=== PATIENT | male | born 1975 | race Caucasian/White ===

== ENCOUNTER 2017-01-07 19:11 | Emergency (ER) | payer MEDICARE ==
[~2017-01-07] VITALS: Ht 182.9 cm; Wt 86.2 kg
--- NOTE | ~2017-01-07 | CR230 ---
[facility] A Service [facility] RADIOLOGY TEXT RESULTS PATIENT: KATHY COOPER LOCATION: SED : 79 UNIT #: [id number] AGE: [address]: Cam Mac PAC SEX: M ORDER DR: [id number] [place] [id number] E MR#: [id number] Acc #: [id number] NAME: KATHY COOPER. : 1975 SEX: M STUDY DATE/TIME: 01/07/2017 20:51 UNIT: SED ROOM: STUDY DESCRIPTION: CR Shoulder Min 2 View Rt Attending Physician: Cam Mac P.A.-C. Ordering Physician: Cma Mac P.A.-C. Primary Care Physician: Primary Care Physician No MEDICAL IMAGING REPORT This report is preliminary unless electronic signature is present. EXAM Right shoulder series dated 01/07/2017. COMPARISON Single view of the chest dated 10/11/2008. HISTORY Right shoulder pain from 0300 hours today. Patient tripped while going down stairs. FINDINGS Three views of the right shoulder were obtained. AP view with internal and external rotation of the shoulder girdle shows satisfactory relationship of the humeral head and glenoid fossa. The joint space is normal. There is no identifiable fracture or dislocation or bony destructive process about the shoulder girdle anatomy. The acromioclavicular joint is normal. There is no radiopaque foreign body in the region. IMPRESSION Normal shoulder. Dictated by... Sheldon Nichols M.D. THIS IS AN ELECTRONICALLY VERIFIED REPORT Sheldon Nichols M.D. at 01/08/2017 6:26 PM CPR/psc [facility] A Service [facility] RADIOLOGY TEXT RESULTS PATIENT: KATHY COOPER LOCATION: SED : 77 UNIT #: [id number] AGE: [address]: Cam Mac PAC SEX: M ORDER DR: TD: 01/08/2017 02:55 JOB #: [id number] MEDICAL IMAGING REPORT Page 1 of 1
[2017-01-07] MEDS ORDERED: THORAZINE200 MG PO (19:51)
[2017-01-07] MEDS ORDERED: CELEXA20 MG PO (19:51)
== END 2017-01-07 22:02 | disposition home or self-care (01) ==
LOC: SED 19:11
DX: S43.401A Unspecified sprain of right shoulder joint, initial encounter (principal); F17.210 Nicotine dependence, cigarettes, uncomplicated; Z88.5 Allergy status to narcotic agent; Z79.899 Other long term (current) drug therapy; W01.0XXA Fall on same level from slipping, tripping and stumbling without subsequent striking against object, initial encounter; Y92.009 Unspecified place in unspecified non-institutional (private) residence as the place of occurrence of the external cause
CPT/HCPCS: 73030; 99283